=== PATIENT | female | born 1975 | race Caucasian/White ===

== ENCOUNTER 2016-10-23 09:42 | Emergency (ER) | payer MEDICAID, MEDICARE, OTHER ==
[~2016-10-23] VITALS: Ht 152.4 cm; Wt 83.9 kg
[2016-10-23 10:03] VITALS: BP 136/86
[2016-10-23] MEDS ORDERED: KETOROLAC 30 MG/1 ML ONE (10:47)
[2016-10-23] MEDS ORDERED: KETOROLAC 30 MG/1 ML IM ONE (11:00)
== END 2016-10-23 11:32 | disposition home or self-care (01) ==
LOC: ED 11:10
DX: R07.89 Other chest pain (principal); E11.9 Type 2 diabetes mellitus without complications
CPT/HCPCS: 71020; 96372; 99284; J1885

== ENCOUNTER 2019-04-12 13:53 | Emergency (ER) | payer MEDICARE ==
[~2019-04-12] VITALS: Ht 167.6 cm; Wt 90.3 kg
--- NOTE | 2019-04-12 14:29 | NUR ---
PT AMBULATORY TO ROOM 4 W/ C/O BILAT PINKY TOE PAIN X 1 MONTH. PT STATES HX TYPE 1 DM. PT STATES SHE WAS DX W/ HANG NAILS 1 MONTH AGO. MILD REDNESS NOTED. CAP REFILL <2 SEC. PT RESTING ON GURNEY. NADN. VSS.
[2019-04-12 14:49] VITALS: BP 107/60
--- NOTE | 2019-04-12 14:49 | NUR ---
PT RESTING ON GURNEY. NADN. MCCALL.
== END 2019-04-12 15:27 | disposition home or self-care (01) ==
LOC: ED 15:20
DX: L03.031 Cellulitis of right toe (principal); L03.032 Cellulitis of left toe; E11.9 Type 2 diabetes mellitus without complications
CPT/HCPCS: 82962; 99283

== ENCOUNTER 2020-12-01 13:03 | Emergency (ER) | payer MEDICAID, MEDICARE ==
[~2020-12-01] VITALS: Ht 152.4 cm; Wt 94.3 kg
[2020-12-01 13:06] VITALS: BP 137/96
== END 2020-12-01 14:07 | disposition home or self-care (01) ==
LOC: ED 14:02
DX: K02.9 Dental caries, unspecified (principal); E11.9 Type 2 diabetes mellitus without complications
CPT/HCPCS: 99283

== ENCOUNTER 2020-12-11 17:17 | Emergency (ER) | payer MEDICARE, MEDICAID ==
[~2020-12-11] VITALS: Ht 152.4 cm; Wt 92.8 kg
[2020-12-11 17:53] VITALS: BP 124/83
--- NOTE | 2020-12-11 17:54 | NUR ---
PT AND PARENT REC'VD DISCHARGE INSTRUCTIONS AND EDUCATION. PT AND PARENT HAD NO QUESTIONS.
--- NOTE | 2020-12-11 18:10 | NUR ---
PATIENT AND PARENT AMBULATED TO AR AREA, STEADY GAIT.
== END 2020-12-11 18:20 | disposition home or self-care (01) ==
LOC: ED 18:00
DX: K02.9 Dental caries, unspecified (principal); K08.89 Other specified disorders of teeth and supporting structures; E11.9 Type 2 diabetes mellitus without complications
CPT/HCPCS: 99283